=== PATIENT | female | born 1950 | race Caucasian/White ===

== ENCOUNTER → 2016-10-25 | Outpatient (CLI) | payer MEDICARE, OTHER ==
--- NOTE | 2016-10-25 11:03 | RAD ---
DATE: 10/25/2016 EXAM: MAMMO LISSETT SCREENING BILATERAL HISTORY: Screening COMPARISON: One year earlier This study was interpreted with the benefit of Computerized Aided Detection (CAD). FINDINGS: Breast Density: SCATTERED The breast parenchyma shows scattered fibroglandular densities. Breast parenchyma level B. There has not been a significant change in the appearance of the breasts compared to the previous exam biopsy clip is noted in the left IMPRESSION: Benign finding BI-RADS CATEGORY: 2 BENIGN FINDING(S) RECOMMENDED FOLLOW-UP: 12M 12 MONTH FOLLOW-UP PQRS compliance statement: Patient information was entered into a reminder system with a target due date 10/25/2017 for the next mammogram. Mammography is a sensitive method for finding small breast cancers, but it does not detect them all and is not a substitute for careful clinical examination. A negative mammogram does not negate a clinically suspicious finding and should not result in delay in biopsying a clinically suspicious abnormality. "Our facility is accredited by the [employer] Mammography [employer]."
== END | disposition home or self-care (01) ==
LOC: MAMMO 10:12
PROVIDERS: ATTEND Family Medicine
DX: Z12.31 Encounter for screening mammogram for malignant neoplasm of breast (principal)
CPT/HCPCS: 77063; G0202; 77067

== ENCOUNTER → 2017-10-30 | Outpatient (CLI) | payer MEDICARE, OTHER ==
--- NOTE | 2017-10-30 14:57 | RAD ---
DATE: 10/30/2017 EXAM: MAMMO LISSETT SCREENING BILATERAL HISTORY: Routine screening COMPARISON: 10/25/2016, 10/20/2015 This study was interpreted with the benefit of Computerized Aided Detection (CAD). Breast Density: SCATTERED The breast parenchyma shows scattered fibroglandular densities. Breast parenchyma level B. FINDINGS: 2-D and 3-D tomosynthesis imaging was performed in CC and MLO projections. An old breast biopsy marker is again noted laterally on the left. It lies within a spiculated opacity measuring approximately 14 mm in greatest diameter as best seen on the left oblique tomosynthesis images #24. This density has definitely increased in size since 10/20/2015. No other new or enlarging breast densities are seen. No suspicious microcalcifications are evident. IMPRESSION: Enlarging irregular breast density related to an old left breast biopsy marker. Although the breast biopsy findings were reportedly benign, this enlarging density is of significant concern. Sonographic evaluation is suggested, and rebiopsy will likely be necessary. Correlation with the path results from the previous biopsy if available may be helpful. BI-RADS CATEGORY: 0 INCOMPLETE: NEEDS ADDITIONAL IMAGING EVALUATION AND/OR PRIOR MAMMOGRAMS FOR COMPARISON. RECOMMENDED FOLLOW-UP: ADD ADDITIONAL IMAGING PQRS compliance statement: Patient information was entered into a reminder system with a target due date for the next mammogram. Mammography is a sensitive method for finding small breast cancers, but it does not detect them all and is not a substitute for careful clinical examination. A negative mammogram does not negate a clinically suspicious finding and should not result in delay in biopsying a clinically suspicious abnormality. "Our facility is accredited by the [employer] Mammography [employer]."
--- NOTE | 2017-10-30 16:07 | RAD ---
Bone densitometry 10/30/2017 12:54 PM Indication: BONE DENSTIY, AXIAL - SCREENING FOR OSTEOPOROSIS, PREVIOUS HERE 2015 Comparison Study: Bone densitometry November 11, 2015. Discussion: Bone Densitometry was performed with dual photon absorption of the lumbar spine and left proximal femur. Lumbar Spine: Bone average density is 1.289g/cm2 for L1-L4. T-Score is 3.8 (prior T score was 0.5). Left femoral neck: Bone average density is 0.977g/cm2. T-Score is -0.4. (T score at the right femoral neck previously measured -0.6) IMPRESSION: Normal bone mineral density of the lumbar spine and left femoral neck. Note: Definitions established by the World Health Organization: Normal: T-score is -1.0 or above. Osteopenia: T-score is between -1.0 and -2.5. Osteoporosis: T-score is -2.5 or below. Electronically signed by: Aguila Solano MD (10/30/2017 4:03 PM) [id number]
== END | disposition home or self-care (01) ==
LOC: MAMMO 12:45
PROVIDERS: ATTEND Family Medicine
DX: Z12.31 Encounter for screening mammogram for malignant neoplasm of breast (principal); Z13.820 Encounter for screening for osteoporosis; Z85.3 Personal history of malignant neoplasm of breast; Z78.0 Asymptomatic menopausal state
CPT/HCPCS: 77063; 77067; 77080

== ENCOUNTER → 2017-11-03 | Outpatient (CLI) | payer MEDICARE, OTHER ==
--- NOTE | 2017-11-03 15:35 | RAD ---
Examination: BREAST LEFT History: Abnormal left mammographic images Comparison/Correlation: 10/25/2016 and 10/30/2017 screening mammographic exams, Findings: Ultrasound examination of the left breast 2:00 region was performed approximately 7 cm from the nipple. There is a hypoechoic mass measuring 0.9 cm solid x 0.9 cm x 0.7 cm. The marker is present within it. There is no flow within the mass. No definite left axillary lymph nodes identified. Impression: BI-RADS Category 4B-intermediate suspicion for malignancy. Interval increase in size of the patient's known left breast mass which was biopsied in the past is noted. Repeat biopsy is recommended. Excisional biopsy should be considered.
== END | disposition home or self-care (01) ==
LOC: US 13:47
PROVIDERS: ATTEND Family Medicine
DX: R92.8 Other abnormal and inconclusive findings on diagnostic imaging of breast (principal)
CPT/HCPCS: 76641

== ENCOUNTER → 2019-06-20 | Outpatient (CLI) | payer MEDICARE, OTHER ==
--- NOTE | 2019-06-20 11:26 | RAD ---
EXAM: CHEST PA LATERAL INDICATION: Cough since February. TECHNIQUE: PA and lateral views COMPARISON: None FINDINGS: The heart size is normal. The great vessels appear unremarkable. There is no hilar or mediastinal mass. The lungs are clear. There is no pleural effusion or pneumothorax. There are no significant osseous abnormalities. IMPRESSION: No active cardiopulmonary disease. Electronically signed by: Toney Shay MD (06/20/2019 11:23 AM) [id number]
== END ==
LOC: DXRAD 10:44
PROVIDERS: ATTEND Family Medicine
DX: R05 Cough (principal)
CPT/HCPCS: 71046

== ENCOUNTER → 2019-10-22 | Outpatient (CLI) | payer MEDICARE, OTHER ==
--- NOTE | 2019-10-22 11:11 | RAD ---
EXAM: DUAL ENERGY X-RAY ABSORPTIOMETRY (DEXA). HISTORY: Postmenopausal screening. FINDINGS: The lowest measured T-score is -0.6 in the right femoral neck, based on a bone mineral density of 0.949 g/cm^2. Refer to the worksheets for full detail. There has been a 1.6 percent increase in density of the lumbar spine and 3.9 percent decrease in density of the right hip compared to a baseline exam performed 11/11/2015. IMPRESSION: Normal. Bone mineral density yields a T-score of -1.0 or greater. Fracture risk is low. METHODOLOGY: Dual energy x-ray absorptiometry was performed to measure bone mineral density. The following analysis is based on the 2019 Official Positions of the International Society for Clinical Densitometry: Measurements of the hips and the average of L1-L4 are preferred. When the spine and/or hip cannot be feasibly measured or interpreted, or in the setting of hyperparathyroidism, distal radial bone mineral density may be measured. The lumbar spine T-score is based on the average bone mineral density of L1-L4. In the setting of artifact or anatomic abnormality, some lumbar levels may be excluded, and the remaining levels used for calculation. A single lumbar level is not used for diagnosis, and if only a single level is available for assessment, another anatomic site will be used to assign a diagnosis. The hip T-score is based on the bone mineral density measurement of the femoral neck or total proximal femur of either side, whichever is lowest. Bilateral mean values are not used for diagnosis. The forearm T-score is derived from 33% of the distal radius of the nondominant forearm. Electronically signed by: Kailyn Martinez MD (10/22/2019 11:08 AM) [email or web address]
== END | disposition home or self-care (01) ==
LOC: DXRAD 09:56
PROVIDERS: ATTEND Internal Medicine Hematology & Oncology
DX: C50.412 Malignant neoplasm of upper-outer quadrant of left female breast (principal); M81.0 Age-related osteoporosis without current pathological fracture; Z17.0 Estrogen receptor positive status [ER+]
CPT/HCPCS: 77080

== ENCOUNTER → 2019-12-18 | Outpatient (CLI) | payer MEDICARE, OTHER ==
[2019-12-18 09:37] LABS: BASO # 0.1 x10^3/uL (0.0-0.2); BASO % 1 % (0-3); EOS # 0.3 x10^3/uL (0.0-0.7); EOS % 5 % (0-3); HEMATOCRIT 39.8 % (36.0-47.0); HEMOGLOBIN 13.3 g/dL (12.0-15.5); LYMPH # 1.6 x10^3/uL (1.0-4.8); LYMPH % 27 % (24-48); MEAN CORPUSCULAR HEMOGLOBIN 30 pg (25-35); MEAN CORPUSCULAR HGB CONC 34 g/dL (31-37); MEAN CORPUSCULAR VOLUME 91 fL (79-100); MONO # 0.6 x10^3/uL (0.0-1.1); MONO % 10 % (0-9); NEUT # 3.3 x10^3uL (1.8-7.7); NEUT % 57 % (31-73); PLATELET COUNT 346 x10^3/uL (140-400); RED BLOOD COUNT 4.39 x10^6/uL (3.50-5.40); RED CELL DISTRIBUTION WIDTH 14.2 % (11.5-14.5); WHITE BLOOD COUNT 5.9 x10^3/uL (4.0-11.0)
[2019-12-18 09:52] LABS: ALBUMIN 4.2 g/dL (3.4-5.0); ALBUMIN/GLOBULIN RATIO 1.1 (1.0-1.7); CREATININE 0.9 mg/dL (0.6-1.0); GFR 61.7; POTASSIUM 3.8 mmol/L (3.5-5.1); TOTAL BILIRUBIN 0.4 mg/dL (0.2-1.0)
--- NOTE | 2019-12-18 16:02 | RAD ---
. Nuclear medicine whole body bone scan History: Breast cancer diagnosed 2017, chemotherapy 2019. Hypercalcemia. Comparison: Two-view chest, June 20, 2019. No other relevant comparison exams. Technique: Examination performed after intravenous administration of 25.2 mCi Technetium 99m MDP. Images of the whole body were obtained in the anterior and posterior projections. Additional right and left lateral static images of ribs acquired. Findings: Tracer uptake in the ribs is symmetric. There is increased tracer uptake on the right localizing to an upper lumbar vertebral body, perhaps L2. Tracer uptake of pelvic bones is symmetric. Tracer uptake in the extremities is unremarkable. Tracer uptake acromioclavicular, glenohumeral, and sternoclavicular joints is likely degenerative. Mildly increased tracer uptake left lateral of the lower cervical spine is nonspecific but may be due to facet arthropathy. Tracer distribution in the soft tissues appears normal. Impression: There is increased tracer uptake on the right of an upper lumbar vertebral body. Recommend correlation with CT or radiographs. Electronically signed by: Kolton Woodard MD (12/18/2019 3:59 PM) [id number]
[2019-12-19 16:07] LABS: KAPPA FREE 14.1 mg/L (3.3-19.4); KAPPA LAMBDA RATIO 1.11 (0.26-1.65); LAMBDA FREE 12.7 mg/L (5.7-26.3)
[2019-12-20 16:13] LABS: IMMUNOGLOBULIN A 165 mg/dL (64-422); IMMUNOGLOBULIN G 983 mg/dL (586-1602); IMMUNOGLOBULIN M 30 mg/dL (26-217)
[2019-12-20 18:13] LABS: ALBUM 4.1 g/dL (2.9-4.4); ALPHA 1 0.2 g/dL (0.0-0.4); ALPHA 2 0.8 g/dL (0.4-1.0); BETA 1.2 g/dL (0.7-1.3); GAMMA 1.1 g/dL (0.4-1.8); PROTEIN TOTAL 7.3 g/dL (6.0-8.5); SPEP AG RATIO 1.3 (0.7-1.7)
== END ==
LOC: NM 08:40
PROVIDERS: ATTEND Internal Medicine Hematology & Oncology
DX: C50.412 Malignant neoplasm of upper-outer quadrant of left female breast (principal); E83.52 Hypercalcemia; Z17.0 Estrogen receptor positive status [ER+]
CPT/HCPCS: 78306; 80053; 83520; 84165; 85025; 86334; A9503; 36415

== ENCOUNTER → 2019-12-31 | Outpatient (CLI) | payer MEDICARE, OTHER ==
[~2019-12-31] MED LIST: IOHEXOL 240 MG/ML 50ML VIAL. ONE; IOHEXOL 240 MG/ML 50ML VIAL. PO ONE; IOHEXOL 300 MG/ML 75 ML VIAL. IV ONE
--- NOTE | 2019-12-31 16:17 | RAD ---
CT CHEST ABD PELVIS W/CONTRAST Clinical Indication: Hypercalcemia, history of breast cancer COMPARISON: Nuclear medicine bone scan 12/18/2019 TECHNIQUE: Multiple contiguous axial images were obtained throughout the chest, abdomen, and pelvis with the use of IV contrast. Axial images were reformatted into coronal and sagittal planes. 75 mL Omnipaque 300 was administered. One or more of the following dose reduction techniques were utilized: Automated exposure control (AEC), Adjustment of mA and/or kV according to patient size, Use of iterative reconstruction technique such as ASiR, CT scan done according to ALARA and image gently/image wisely. Findings: The thyroid is symmetric. There is no axillary, mediastinal, or hilar adenopathy. Atherosclerosis of the thoracic aorta The cardiac size is normal. Coronary artery atherosclerotic disease There is no pericardial effusion. The central airways are patent. Tiny paratracheal air cyst at the thoracic inlet on the left. No pulmonary mass or consolidation. Left anterior hemithorax subpleural reticulation, likely posttreatment change. Right lower lobe calcified granuloma. No pleural effusion is observed. There is no pneumothorax. Left adrenal indeterminate lesion measuring 2.2 x 1.7 cm. The liver, gallbladder, spleen, and pancreas are unremarkable. No hydronephrosis. Subcentimeter left renal hypodensity, too small to characterize but probably a cyst. There is no significant mesenteric or retroperitoneal adenopathy identified. There is no evidence of free intraperitoneal fluid or pneumoperitoneum. Colonic diverticulosis. Mild aortoiliac atherosclerotic disease. Bladder is unremarkable. There is no significant pelvic ascites. No significant iliac or inguinal adenopathy is identified. Transitional anatomy at the lumbosacral junction with the transitional vertebra designated a partially lumbarized S1 vertebra with rudimentary disc at S1-S2. No suspicious lytic or blastic osseous lesions. C7 vertebral body lucency has fat attenuation (-96 Hounsfield units), likely intraosseous hemangioma or lipoma. Multilevel degenerative disc disease, focally advanced at L2-3 on the right with subchondral cystic change. Degenerative disc disease is also severe at L5-S1. Postsurgical changes of left breast lumpectomy. IMPRESSION: 1. Indeterminate left adrenal 2.2 cm lesion. Recommend comparison with prior imaging if available, otherwise this could be further characterized with multiphasic adrenal protocol CT. 2. No suspicious osseous lesions. Abnormal radiotracer uptake seen on the prior bone scan in the upper lumbar spine is suspected to relate to focally advanced degenerative disc disease at L2-3. 3. No thoracic or abdominal lymphadenopathy. Electronically signed by: Willy Atwood MD (12/31/2019 4:14 PM) [id number]
== END ==
LOC: CT 10:11
PROVIDERS: ATTEND Internal Medicine Hematology & Oncology
DX: K57.30 Diverticulosis of large intestine without perforation or abscess without bleeding (principal); N28.1 Cyst of kidney, acquired; E83.52 Hypercalcemia; I70.0 Atherosclerosis of aorta; I25.10 Atherosclerotic heart disease of native coronary artery without angina pectoris; Q76.49 Other congenital malformations of spine, not associated with scoliosis; M51.37 Other intervertebral disc degeneration, lumbosacral region; Z85.3 Personal history of malignant neoplasm of breast
CPT/HCPCS: 71260; 74177; Q9966; Q9967

== ENCOUNTER 2021-01-22 10:24 | Emergency (ER) | payer MEDICARE, OTHER ==
[~2021-01-22] VITALS: Ht 157.5 cm; Wt 75.7 kg
[2021-01-22] MEDS ORDERED: IV NORMAL SALINE 1,000ML 1,000 ML IV ONE (11:15)
[2021-01-22] MEDS ORDERED: IOHEXOL 300 MG/ML 75 ML VIAL. IV ONE (11:15)
[2021-01-22] MEDS ORDERED: ONDANSETRON PF 4 MG/2 ML VIAL. IVP ONE (11:15)
--- NOTE | 2021-01-22 11:29 | PHYS DOC ---
Past History Past Surgical History: , Other Additional Past Surgical Histo: lumpectomy left breast Alcohol Use: None General Adult EDM: Chief Complaint: ABDOMINAL PAIN HPI: HPI: 70-year-old female presents with lower abdominal pain. She has had this pain for 2 days. She had several episodes of vomiting overnight. She was unable to sleep due to the pain. The pain is an intense cramping sensation across the lower abdomen. She has not had a bowel movement in 2 days. She feels like she is more bloated than usual. She denies fever or chills. Review of Systems: Review of Systems: Constitutional: Denies fever or chills Eyes: Denies change in visual acuity HENT: Denies nasal congestion or sore throat Respiratory: Denies cough or shortness of breath Cardiovascular: Denies chest pain or edema GI: Lower abdominal pain, nausea, vomiting. : Denies dysuria Musculoskeletal: Denies back pain or joint pain Integument: Denies rash Neurologic: Denies headache, focal weakness or sensory changes Endocrine: Denies polyuria or polydipsia Lymphatic: Denies swollen glands Psychiatric: Denies depression or anxiety Current Medications: Current Meds: Current Medications Medications (Trade) Dose Ordered Sig/Virgil Start Time Stop Time Status Last Admin Dose Admin Iohexol (Omnipaque 300 Mg/ml) 75 ml 1X ONCE 01/22/21 11:15 01/22/21 11:16 DC Ondansetron HCl (Zofran) 4 mg 1X ONCE 01/22/21 11:15 01/22/21 11:16 UNV 01/22/21 11:22 4 MG Sodium Chloride 1,000 ml @ 1,000 mls/hr 1X ONCE 01/22/21 11:15 01/22/21 12:14 01/22/21 11:17 1,000 MLS/HR Allergies: Allergies: Allergies Coded Allergies Type Severity Reaction Last Updated Verified No Known Drug Allergies 01/22/21 No Physical Exam: PE: Constitutional: Well developed, well nourished, obese, no acute distress, non- toxic appearance. [] HENT: Normocephalic, atraumatic, bilateral external ears normal, oropharynx moist, no oral exudates, nose normal. [] Eyes: PERRLA, EOMI, conjunctiva normal, no discharge. [] Neck: Normal range of motion, no tenderness, supple, no stridor. [] Cardiovascular: Heart rate regular rhythm, no murmur [] Lungs & Thorax: Bilateral breath sounds clear to auscultation [] Abdomen: Bowel sounds normal, soft, no tenderness, no masses, no pulsatile masses. [] Skin: Warm, dry, no erythema, no rash. [] Back: No tenderness, no CVA tenderness. [] Extremities: No tenderness, no cyanosis, no clubbing, ROM intact, no edema. [] Neurologic: Alert and oriented X 3, normal motor function, normal sensory function, no focal deficits noted. [] Psychologic: Affect normal, judgement normal, mood normal. [] Current Patient Data: Vital Signs: Vital Signs Date Time Temp Pulse Resp B/P (MAP) Pulse Ox O2 Delivery O2 Flow Rate FiO2 01/22/21 10:52 98.5 105 18 124/69 (87) 98 Room Air EKG: EKG: [] Radiology/Procedures: Radiology/Procedures: [] Heart Score: C/O Chest Pain: N/A Risk Factors: Risk Factors: DM, Current or recent (<one month) smoker, HTN, HLP, family history of CAD, obesity. Risk Scores: Score 0 - 3: 2.5% MACE over next 6 weeks - Discharge Home Score 4 - 6: 20.3% MACE over next 6 weeks - Admit for Clinical Observation Score 7 - 10: 72.7% MACE over next 6 weeks - Early Invasive Strategies Course & Med Decision Making: Course & Med Decision Making Pertinent Labs and Imaging studies reviewed. (See chart for details) The patient's labs are significant for an elevated white count. Urinalysis is negative for infection. CT scan of the abdomen and pelvis shows likely enteritis. There are some dilated loops of small bowel, but no transition point or obvious obstruction. See official read for more details. This is likely viral, but I will cover her with Augmentin for 7 days. She is stable for discharge at this time. I will also discharge her with prescription for Zofran. [] Dragon Disclaimer: Dragon Disclaimer: This electronic medical record was generated, in whole or in part, using a voice recognition dictation system. Departure Departure: Impression: Primary Impression: Enteritis Disposition: HOME / SELF CARE / HOMELESS Condition: STABLE Referrals: DREA SPANGLER MD (PCP) Patient Instructions: Abdominal Pain, [id number] Scripts Amoxicillin/Potassium Clav (AUGMENTIN 875-125 TABLET) 1 Each Tablet 1 TAB PO BID for enteritis for 7 Days, #14 TAB 0 Refills Prov: NABIL TAM DO 01/22/21 Ondansetron (ONDANSETRON ODT) 4 Mg Tab.rapdis 1 TAB PO PRN Q6-8HRS PRN for VOMITING, #16 TAB Prov: NABIL TAM DO 01/22/21 NABIL TAM DO Jan 22, 2021 11:29
[2021-01-22 11:36] LABS: BASO # 0.1 x10^3/uL (0.0-0.2); BASO % 0 % (0-3); EOS % 0 % (0-3); HEMATOCRIT 44.1 % (36.0-47.0); HEMOGLOBIN 14.6 g/dL (12.0-15.5); LYMPH # 1.2 x10^3/uL (1.0-4.8); LYMPH % 7 % (24-48); MEAN CORPUSCULAR HEMOGLOBIN 30 pg (25-35); MEAN CORPUSCULAR HGB CONC 33 g/dL (31-37); MEAN CORPUSCULAR VOLUME 92 fL (79-100); MONO # 1.2 x10^3/uL (0.0-1.1); MONO % 7 % (0-9); NEUT # 13.9 x10^3uL (1.8-7.7); NEUT % 85 % (31-73); PLATELET COUNT 396 x10^3/uL (140-400); RED BLOOD COUNT 4.81 x10^6/uL (3.50-5.40); RED CELL DISTRIBUTION WIDTH 13.7 % (11.5-14.5); WHITE BLOOD COUNT 16.4 x10^3/uL (4.0-11.0)
[2021-01-22 11:39] LABS: CALCIUM 9.8 mg/dL (8.5-10.1); CREATININE 1.1 mg/dL (0.6-1.0); GFR 48.8; POTASSIUM 3.8 mmol/L (3.5-5.1)
[2021-01-22 11:46] LABS: ALBUMIN 4.2 g/dL (3.4-5.0); ALBUMIN/GLOBULIN RATIO 1.1 (1.0-1.7); TOTAL BILIRUBIN 0.4 mg/dL (0.2-1.0); TOTAL PROTEIN 8.2 g/dL (6.4-8.2)
[2021-01-22 12:01] LABS: BILIRUBIN,URINE SMALL (NEG); CLARITY,URINE CLEAR; COLOR,URINE YELLOW; GLUCOSE,URINE NEG (NEG)
[2021-01-22 12:02] LABS: BACTERIA,URINE 0 /HPF (0-FEW); HYALINE CASTS, URINE FEW /HPF; NITRITE,URINE NEG (NEG); RBC,URINE RARE /HPF (0-2); SQUAMOUS EPITHELIAL CELL,UR OCC /LPF; UROBILINOGEN,URINE 0.2 mg/dL (0.2 mg/dL)
[2021-01-22 12:12] LABS: % LYMPHS 5 % (24-48); % MONOS 7 % (0-10); % SEGS 88 % (35-66); PLT ESTIMATE ADEQUATE (ADEQUATE)
--- NOTE | 2021-01-22 12:18 | RAD ---
Site ID: [id number] EXAMINATION: CT ABDOMEN+PELVIS W. Technique: Axial images with coronal and sagittal reconstructions are performed of abdomen and pelvis with intravenous contrast. 75 mL of Omnipaque-300 was administered intravenously. One or more of the following radiation dose reduction techniques was used: automated exposure control , adjustment of mA and/or KV according to patient size, and/or utilization of iterative reconstructio n technique. HISTORY: 70 years Female Reason: lower abdominal pain COMPARISON: December 31, 2019. FINDINGS: The lung bases appear clear. The liver, gallbladder, spleen, the pancreas, and the right adrenal gland appear unremarkable. The le ft adrenal gland demonstrate the low density nodule measuring 2.3 cm unchanged from December 2019 exa m favored to be an adrenal adenoma based on the stability in size. The kidneys have symmetric enhancement. No hydronephrosis. The abdominal aorta is normal in caliber. No para-aortic significantly enlarged lymph nodes are seen. There is a small amount of free fluid seen in the pelvis. There are fluid-filled the mildly dilated the multiple ileal loops are seen. The cecum and the proxim al colon is also fluid filled with no significant distention. There is a wall enhancement noted in th e distal ileal loops and the terminal ileum. There is fecal material seen in the distal colon and rec dilip. There is no definite the transition zone to suggest mechanical obstruction and the findings are from favored to be secondary to enteritis with the reactive localized ileus causing dilated distal sm all bowel loops. There is a a number of small bowel loops and associated the mesentery demonstrating the rotated appea palmira in the mid abdomen slightly to the right side. This can be associated with an internal hernia t hrough the mesentery. It is less likely that this is contributing to the acute pathology. The osseous structures demonstrate prominent degenerative changes in the lower lumbar spine with post erior osteophytes and disc herniation noted at the multiple levels. IMPRESSION: 1. Multiple dilated ileal loops associated with mucosal enhancement favored to be secondary to inflam matory or infectious enteritis with reactive localized ileus probably explaining dilatation. No defin ite evidence of mechanical obstruction. 2. Rotated small bowel loops seen in the mid abdomen slightly to the right side may suggest the prese nce of an internal hernia. 3. Left adrenal nodule measuring 2.3 cm stable from December 2019 exam could represent an adrenal nod ule based on the stability. Electronically signed by: Dain Hayes MD (01/22/2021 12:15 PM) [id number]
[2021-01-22 12:32] VITALS: BP 127/62
[2021-01-22] MEDS ORDERED: AMOX1TAB61 PO (12:56)
[2021-01-22] MEDS ORDERED: ONDA4TAB12 PO (12:56)
== END 2021-01-22 13:02 | disposition home or self-care (01) ==
LOC: ER 10:24
DX: K52.9 Noninfective gastroenteritis and colitis, unspecified (principal)
CPT/HCPCS: 36415; 74177; 80053; 81001; 85007; 85025; 96361; 96374; 99285; J2405; J7030; Q9967